=== PATIENT | female | born 1995 | race Caucasian/White ===

== ENCOUNTER 2017-10-24 19:47 | Emergency (ER) | payer OTHER, MEDICAID, SELFPAY ==
[2017-10-24 19:52] VITALS: BP 142/90; PULSE 124; RESP 20; TEMP 37.6; O2SAT 100
--- NOTE | 2017-10-24 20:53 | PC.NURSE ---
Steady gait noted.
--- NOTE | 2017-10-24 21:06 | ED.HA ---
HPI - Headache General Chief Complaint: Headache Stated Complaint: Hit back of head on fridge door this morning Time Seen by Provider: 10/24/17 20:50 History of Present Illness HPI Narrative: HPI 22-year-old female presents for evaluation of a headache and mild nausea after bumping the back of her head a freezer door approximately 10 hours prior to arrival. Patient is bending down with her young son accidentally close the door striking the back of her head. Patient had no LOC, patient no post injury confusion. Patient denies neck pain, changes in vision or hearing. Patient has no known coagulopathies, takes no anticoagulants or antiplatelet medications. ROS with no recent constitutional symptoms. Exam Gen: Pleasant, nontoxic-appearing, resting comfortably. HEENT: TMs clear bilaterally, small area of ecchymosis on the occiput, no underlying bony tenderness to palpation, otherwise normocephalic, atraumatic, PERRLA, EOMI. Resp: Unlabored respirations with a normal work of breathing. Card: Extremities warm and well perfused. GI: Non-distended. : Deferred MSK: No visible deformities, strength and tone without visually appreciable deficit. No C-spine tenderness palpation. Neck with full range of motion. Neuro: AO x 3, no facial asymmetry, vision and hearing WNL. Heme/Lymph: Deferred Skin: Normal color with no visible lesions (other than noted above). Psych: Mood and affect appropriate. MDM Previous chart, nursing note, and vitals reviewed. A: 22-year-old female presents for evaluation of a headache and mild nausea after bumping the back of her head a freezer door approximately 10 hours prior to arrival. DDx & Evaluation: * Patient meets Nexus II rule for NOT imaging their head (age >= 65 - N, skull fx evidence - N, neuro deficit - N, AMS - N, abnormal behavior - N, coagulopathy - N, recurrent or forceful vomiting - N) as well a clinical gestalt. NOTE: SENS ~97% * C-spine was cleared clinically as the patient is without focal neurological deficits on exam, meets both [place] C-spine clearance criteria (age < 65, low risk mechanism, absent extremity paresthesias, absent mid-line c-spine tenderness, and can lateral rotate neck bilaterally) and clinical gestalt. * Patient with mild concussive symptoms. Zofran prescribed. Return to care precautions provided. Impression: concussion (please reference below for remainder of encounter information) Related Data Home Medications Medication Instructions Recorded Confirmed No Known Home Medications 10/24/17 10/24/17 Allergies Allergy/AdvReac Type Severity Reaction Status Date / Time No Known Drug Allergies Allergy Verified 10/24/17 19:54 Exam Initial Vital Signs Initial Vital Signs: Vital Signs Temperature 99.6 F 10/24/17 19:52 Pulse Rate 124 H 10/24/17 19:52 Respiratory Rate 20 10/24/17 19:52 Blood Pressure 142/90 H 10/24/17 19:52 Pulse Oximetry 100 10/24/17 19:52 Course Vital Signs - 8 hr 10/24/17 19:52 Temperature 99.6 F Pulse Rate 124 H Respiratory Rate 20 Blood Pressure 142/90 H Pulse Oximetry 100 Discharge Plan Departure Prescriptions: No Action No Known Home Medications RF: 0
[2017-10-24 21:20] VITALS: BP 133/78; PULSE 94; RESP 18; O2SAT 100
== END 2017-10-24 21:30 | disposition home or self-care (01) ==
PROVIDERS: Emergency Provider Emergency Medicine
DX: S06.0X9A Concussion with loss of consciousness of unspecified duration, initial encounter (principal); W22.09XA Striking against other stationary object, initial encounter
CPT/HCPCS: 99282; 99283

== ENCOUNTER → 2020-02-17 15:17 | Outpatient (CLI) | payer OTHER, MEDICAID, SELFPAY | PROVIDERS: PCP Student in an Organized Health Care Education/Training Program; Visit Provider Nurse Practitioner | DX: R30.0 Dysuria (principal) | CPT/HCPCS: 87077; 87086; 87186 ==

== ENCOUNTER → 2020-06-25 16:46 | Outpatient (CLI) | payer OTHER, MEDICAID, SELFPAY ==
--- NOTE | 2020-06-25 16:46 | DI.RAD.S_ITS ---
PROCEDURE: XR KNEE RT 3V INDICATIONS: knee pain TECHNIQUE: 3 views of the knee were acquired. COMPARISON: None. FINDINGS: Bones: No fractures or dislocations. No suspicious bony lesions. Soft tissues: Small joint effusion. No suspicious soft tissue calcifications. IMPRESSION: Small knee joint effusion; otherwise no definite radiographic abnormality. If pain persists with conservative management, consider cross sectional imaging such as CT or MRI for further assessment. Dictated by: Judd Shaw [facility] Interpreted: Hui Langston MD on 06/25/2020 at 16:58 Approved by: Hui Langston M.D. on 06/25/2020 at 17:05
--- NOTE | 2020-06-25 16:46 | DI.RAD.S_ITS ---
PROCEDURE: XR KNEE LT 3V INDICATIONS: knee pain TECHNIQUE: 3 views of the knee were acquired. COMPARISON: None. FINDINGS: Bones: No fractures or dislocations. No suspicious bony lesions. Soft tissues: Small joint effusion. No suspicious soft tissue calcifications. IMPRESSION: Small knee joint effusion; otherwise no definite radiographic abnormality. If pain persists with conservative management, consider cross sectional imaging such as CT or MRI for further assessment. Dictated by: Judd Shaw [facility] Interpreted: Hui Langston MD on 06/25/2020 at 16:57 Approved by: Hui Langston M.D. on 06/25/2020 at 17:05
== END ==
PROVIDERS: PCP Student in an Organized Health Care Education/Training Program; Referring Provider Student in an Organized Health Care Education/Training Program; Visit Provider Student in an Organized Health Care Education/Training Program
DX: M25.561 Pain in right knee (principal); M25.562 Pain in left knee; M25.462 Effusion, left knee; M25.461 Effusion, right knee
CPT/HCPCS: 73562

== ENCOUNTER 2020-07-08 05:31 | Emergency (ER) | payer OTHER, MEDICAID, SELFPAY ==
[2020-07-08 05:38] VITALS: BP 149/89; PULSE 115; RESP 22; TEMP 36.3; O2SAT 100; BMI 25.3
--- NOTE | 2020-07-08 05:47 | ED.DENTAL ---
HPI - Dental/Oral General Chief complaint: Dental/Oral Stated complaint: lower left tooth pain Time Seen by Provider: 07/08/20 05:39 Source: patient Mode of arrival: Ambulatory Limitations: no limitations History of Present Illness HPI Narrative: 25-year-old female with complaint of dental pain. Patient states she has had symptoms since about June. Patient states that she cracked her tooth, number 19 approximately 10 years ago. She states she did not have much issue until the last 1-2 months patient states she has been having intermittent pain. It is becoming progressively more painful and in the last 24 hours has been constant. She states it woke her up from sleep this morning. She took 2 500 mg Tylenol this morning at 5:00 a.m. she states she is having some improvement but still present. She denies fevers, chills, no cold cough congestion. No swelling of her airway, face. She has not appreciated any swelling around the tooth no drainage or purulence. Denies any nausea no vomiting. No chest pain, shortness of breath or other GI or urinary symptoms. She denies any rashes or skin changes. Denies any major medical issues. Denies any allergies to medications. She does have a dentist but stated that she thought she should be evaluated since she is not sure when she will get an appointment when she calls this morning. Related Data Home Medications Medication Instructions Recorded Confirmed etonogestrel 68 mg subdermal SUBDERMAL each 03/31/18 06/25/20 implant Previous Rx's Medication Instructions Recorded ibuprofen 800 mg PO Q8H PRN #20 tab 07/08/20 penicillin V potassium 500 mg PO Q6H 10 Days #40 tab 07/08/20 Allergies Allergy/AdvReac Type Severity Reaction Status Date / Time No Known Drug Allergies Allergy Verified 07/08/20 05:41 Review of Systems Review of Systems ROS Unobtainable: All systems reviewed & are unremarkable except as noted in HPI and below Patient History Medical History Anxiety Depression Hemochromatosis Surgical History No history of previous surgery (03/31/18) Family History Father No problems noted. Mother No problems noted. Brother No problems noted. Social History Smoking Status: Never smoker alcohol intake: never substance use type: does not use Smoking Status: Never smoker Substance Use Type: does not use Exam Narrative Exam Narrative: GEN: well nourished, well appearing female, alert and oriented x 3, patient appears to be in mild distress. HEENT: Atraumatic, pupils are equal round reactive to light, extraocular movements are intact, nares are clear, TMs are clear with no fluid. Throat is clear without any exudates, erythema, tonsillar enlargement or uvular deviation. Tooth 19. Appears to be cracked, no purulence noted. There is some very slight swelling around the tooth no additional swelling noted of the oropharynx. Normal speech. No facial erythema, swelling or other changes appreciated. HEART: Regular rate and rhythm without murmur, clicks, rubs. LUNGS:Lungs clear to auscultation, no wheezes, rales, crackles, chest moves symmetrically ABD:bowel sounds normal, soft, non-tender, no guarding, rebound, rigidity, no masses noted, no hepatosplenomegaly MSCL: Non-tender, no muscle atrophy, muscles strength 5/5 upper and lower extremities, full range of motion, normal gait NEURO:CN 2-12 intact, sensation normal SKIN: No erythema, rash, vesicles or other changes appreciated. Initial Vital Signs Initial Vital Signs: Vital Signs Temperature 97.3 F L 07/08/20 05:38 Pulse Rate 115 H 07/08/20 05:38 Respiratory Rate 22 07/08/20 05:38 Blood Pressure 149/89 H 07/08/20 05:38 Pulse Oximetry 100 07/08/20 05:38 Course Vital Signs Vital signs: Vital Signs - 8 hr 07/08/20 05:38 Temperature 97.3 F L Pulse Rate 115 H Respiratory Rate 22 Blood Pressure 149/89 H Pulse Oximetry 100 MDM - Dental/Oral MDM Narrative Medical decision making narrative: 25-year-old female with complaint of cracked tooth for prolonged period of time that has suddenly become painful. Obvious signs of infection although there is some very mild swelling. Discussed with patient if she is not having improvement with Tylenol and ibuprofen and able to see a dentist in the short term would be appropriate for her to start antibiotics. Return precautions were given. Patient is comfortable with this plan. She defers any additional pain medication here in the department. Discharge Plan Departure Patient Disposition: Home Clinical Impression: Fracture of tooth, Pain, dental Instructions: DI for Dental Pain Activity Restrictions/Additional Instructions: Call this morning to set up follow-up with a dentist. You may take Tylenol up to a 1000 mg every 8 hours as needed for pain and or ibuprofen up to 800 mg every 8 hours as needed for pain. You may also use Orajel topically to the affected area just prior to meals. Return to the ER for fevers, facial swelling, swelling of your lips, mouth, your airway, new redness, purulence drainage, or signs of abscess, persistent vomiting, stridor or hoarse voice or other new or concerning symptoms. Prescriptions: New penicillin V potassium 500 mg tablet 500 mg PO Q6H 10 Days Qty: 40 RF: 0 ibuprofen 800 mg tablet 800 mg PO Q8H PRN (Reason: pain) Qty: 20 RF: 0 No Action etonogestrel [Nexplanon] 68 mg implant Subdermal RF: 0 Referrals: Joaquin Loyola MD [Primary Care Provider] -
== END 2020-07-08 05:59 | disposition home or self-care (01) ==
PROVIDERS: Emergency Provider Emergency Medicine; PCP Student in an Organized Health Care Education/Training Program
DX: K03.81 Cracked tooth (principal); K08.89 Other specified disorders of teeth and supporting structures
CPT/HCPCS: 99281

== ENCOUNTER 2020-07-09 17:25 | Emergency (ER) | payer OTHER, MEDICAID, SELFPAY ==
[2020-07-09 17:31] VITALS: BP 134/80; PULSE 125; RESP 16; TEMP 37.3; O2SAT 100
[2020-07-09 18:09] VITALS: TEMP 37.9
[2020-07-09 18:49] VITALS: TEMP 37.9
[2020-07-09] MEDS: ACETAMINOPHEN 325 MG TABLET 650 MG PO (18:49)
--- NOTE | 2020-07-09 18:49 | ED_ITS ---
HPI - Dental/Oral General Chief complaint: Fever Stated complaint: fever, pain in lower jaw Time Seen by Provider: 07/09/20 18:42 Source: patient Mode of arrival: Ambulatory History of Present Illness HPI Narrative: Patient here with family. Complains of continued left jaw pain and swelling. Seen here yesterday for the same complaint. Discharged on penicillin. Has taken 4 pills since her visit here. Complains of left submandibular pain and swelling. She states the tooth itself does not hurt as bad. Tooth 19. See note below from previous visit. No drooling. No trouble breathing. No malocclusion or trismus no tongue elevation. Fever noted. [address] [id number] Report Patient: Norman Montiel RMR#: [id number]: 1995Acct:[id number]/Sex: 25 / F Date of Service: 07/08/20ER Physician: Nicci Roman D.O. HPI - Dental/Oral General Chief complaint: Dental/Oral Stated complaint: lower left tooth pain Time Seen by Provider: 07/08/20 05:39 Source: patient Mode of arrival: Ambulatory Limitations: no limitations History of Present Illness HPI Narrative: 25-year-old female with complaint of dental pain. Patient states she has had symptoms since about June. Patient states that she cracked her tooth, number 19 approximately 10 years ago. She states she did not have much issue until the last 1-2 months patient states she has been having intermittent pain. It is becoming progressively more painful and in the last 24 hours has been constant. She states it woke her up from sleep this morning. She took 2 500 mg Tylenol this morning at 5:00 a.m. she states she is having some improvement but still present. She denies fevers, chills, no cold cough congestion. No swelling of her airway, face. She has not appreciated any swelling around the tooth no drainage or purulence. Denies any nausea no vomiting. No chest pain, shortness of breath or other GI or urinary symptoms. She denies any rashes or skin changes. Denies any major medical issues. Denies any allergies to medications. She does have a dentist but stated that she thought she should be evaluated since she is not sure when she will get an appointment when she calls this morning. Related Data Home Medications Medication Instructions Recorded Confirmed etonogestrel 68 mg subdermal SUBDERMAL each 03/31/18 06/25/20 implant Previous Rx's Medication Instructions Recorded ibuprofen 800 mg PO Q8H PRN #20 tab 07/08/20 penicillin V potassium 500 mg PO Q6H 10 Days #40 tab 07/08/20 clindamycin HCl 450 mg PO TID 7 Days #63 cap 07/09/20 Allergies Allergy/AdvReac Type Severity Reaction Status Date / Time No Known Drug Allergies Allergy Verified 07/08/20 05:41 Review of Systems Review of Systems Narrative: GENERAL: Denies chills, fatigue, malaise, fever, sweats. HEENT: Denies sinus pain, ear pain, sore throat, difficulty swallowing RESPIRATORY: Denies dyspnea, cough CARDIOVASCULAR: Denies chest pain GASTROINTESTINAL: Denies nausea, vomiting, abdominal pain, diarrhea : Denies dysuria, frequency, hematuria MUSCULOSKELETAL: denies muscle or bony pain SKIN: Denies rash, skin lesions NEUROLOGIC: Denies weakness, headache ROS Unobtainable: All systems reviewed & are unremarkable except as noted in HPI and below Patient History Medical History Anxiety Depression Hemochromatosis Surgical History No history of previous surgery (03/31/18) Family History Father No problems noted. Mother No problems noted. Brother No problems noted. Social History Smoking Status: Never smoker alcohol intake: never substance use type: does not use Smoking Status: Never smoker Substance Use Type: does not use Exam Narrative Exam Narrative: GENERAL: patient appears stated age. Well-nourished, well- developed patient, in no distress, not toxic not dyspneic HEAD: Normocephalic. EYES: Pupils equal round and reactive. No scleral icterus. No injection no discharge ENT: Mucous membranes moist. No drooling no tongue elevation no trismus no malocclusion, dental caries/fracture that is chronic appearing on tooth 19. No palpable abscess around this area at the gums. Nontender. Mild left submandibular tenderness with mild edema but no erythema or induration. NECK: Trachea midline. Non tender no stridor Lungs are clear, full and equal lung sounds, speaks full sentences. NEURO: AOx4. SKIN: Warm and dry PSYCH: Not anxious, is cooperative Initial Vital Signs Initial Vital Signs: Vital Signs Temperature 99.2 F 07/09/20 17:31 Pulse Rate 125 H 07/09/20 17:31 Respiratory Rate 16 07/09/20 17:31 Blood Pressure 134/80 07/09/20 17:31 Pulse Oximetry 100 07/09/20 17:31 Course Course Course Narrative: No new issues during course of stay Orders Ordered: ED Orders 07/09/20 18:48 CT facial bones w con Stat 07/09/20 18:55 Complete Blood Count AUTO DIFF Stat Comprehensive Metabolic Panel Stat Discontinued Medications Acetaminophen (Acetaminophen 325 Mg Tablet) 650 mg PO NOW ONE Stop: 07/09/20 18:32 Last Admin: 07/09/20 18:49 Dose: 650 mg Documented by: TEMO Clindamycin HCl (Clindamycin 150 Mg Capsule) 450 mg PO NOW ONE Stop: 07/09/20 20:52 Last Admin: 07/09/20 20:57 Dose: 450 mg Documented by: TEMO Sodium Chloride (Normal Saline 0.9%) 1,000 mls @ 1,000 mls/hr IV BOLUS ONE Stop: 07/09/20 19:47 Last Infusion: 07/09/20 20:19 Dose: 0 mls/hr Documented by: Admin: 07/09/20 19:03 Dose: 1,000 mls/hr Documented by: TEMO Reevaluation(s) Reevaluation #1: Reviewed with patient results. Agrees with discharge home and. Previous antibiotic. She has appointment this already with her dentist for tooth extraction. Time: 20:57 Vital Signs Vital signs: Vital Signs - 8 hr 07/09/20 17:31 07/09/20 18:09 07/09/20 18:49 Temperature 99.2 F 100.3 F H 100.3 F H Pulse Rate 125 H Respiratory Rate 16 Blood Pressure 134/80 Pulse Oximetry 100 07/09/20 19:11 07/09/20 19:57 07/09/20 21:03 Temperature 98.6 F 98.6 F Pulse Rate 94 H Respiratory Rate 16 Blood Pressure 121/70 114/68 Pulse Oximetry 99 MDM - Dental/Oral Differential Diagnosis Differential diagnosis: Likely gingival abscess, dental caries, toothache and dental abscess Medical Records Attestation: I reviewed the patient's medical records. Lab Data Attestation: I reviewed the patient's lab results. Result diagrams: 07/09/20 18:55 07/09/20 18:55 Labs: Lab Results 07/09/20 07/09/20 Range/Units 18:55 18:55 WBC 5.6 (4.5-11.0) X10^3/uL RBC 4.28 (4.0-5.2) X10^6/uL Hgb 12.9 (12.0-16.0) g/dL Hct 38.6 (36-46) % MCV 90.2 (80-100) fL MCH 30.3 (26-34) PG MCHC 33.6 (30-36) % RDW 12.2 (11.6-14.8) % Plt Count 146 L (150-400) X10^3/uL Neut % (Auto) 74.5 (50-75) % Lymph % (Auto) 9.8 L (25-40) % [place] % (Auto) 15.5 H (3-14) % Eos % (Auto) 0.0 L (2-4) % Baso % (Auto) 0.2 (0-2) % Neut # (Auto) 4100 (8026-2190) /uL Lymph # (Auto) 500 L (5514-1590) /uL [place] # (Auto) 900 (0-900) /uL Eos # (Auto) 0 (0-450) /uL Baso # (Auto) 0 (0-100) /uL Sodium 134 L (137-145) mmol/L Potassium 3.9 (3.4-5.1) mmol/L Chloride 105 (98-107) mmol/L Carbon Dioxide 23 (22-32) mmol/L BUN 9 (7-17) mg/dL Creatinine 0.59 (0.52-1.04) mg/dL Estimated GFR > 60.0 (>60) mL/min BUN/Creatinine Ratio 15.3 (6-22) Glucose 90 (70-100) mg/dL Calcium 9.0 (8.4-10.2) mg/dL Total Bilirubin 0.4 (0.2-1.3) mg/dL AST 19 (14-36) IU/L ALT 11 (<35) IU/L Alkaline Phosphatase 70 (38-126) U/L Total Protein 6.8 (6.3-8.2) g/dL Albumin 3.9 (3.5-5.0) g/dL Globulin 2.9 (1.7-4.1) g/dL Albumin/Globulin Ratio 1.3 (1.0-2.8) Point of Care Testing Test Results Negative Imaging Data CT face: Radiologist's Impression: [address] [id number] Scan ReportSigned Patient: Norman Montiel RMR#: [id number]: 1995Acct:[id number]/Sex: 25 / FDate of Service: 07/09/20Loc: EDAccession Number: [id number] Procedure: CT facial bones w con Ordering Provider: Rk Aguilar MD PROCEDURE: CT FACIAL BONES W CON INDICATIONS: Left jaw swelling. TECHNIQUE: After the administration of intravenous contrast, 2.5 mm axial sections acquired from the mid-neck to the frontal sinuses, with coronal and sagittal reformats. For radiation dose reduction, the following was used: automated exposure control, adjustment of mA and/or kV according to patient size. COMPARISON: None. FINDINGS: Image quality: Excellent. Soft tissues: There is slight asymmetric appearance of soft tissue prominence along the anterior left jaw soft tissues. No focal abscess is identified. No enlarged lymph nodes. Vascular: Visualized vascular structures appear patent throughout. Bony vascular foramina and canals appear normal. Bones: Facial bones appear intact, without fractures, erosions, or destruction. Visualized portions of the skull base and auditory canals also appear normal. Sinuses: Paranasal sinuses are aerated without fluid levels, mucosal thickening, or mucoceles. Mastoid air cells are aerated. IMPRESSION: 1. Slight asymmetric soft tissue prominence adjacent to the anterior left jaw. No focal abscess is identified. Recommend correlation to inflammation. Dictated by: Hui Langston M.D. on 07/09/2020 at 20:05 Approved by: Hui Langston M.D. on 07/09/2020 at 20:10 [facility] Narrative Medical decision making narrative: Appropriate for discharge home. Patient not toxic. Fever control. Likely early abscess forming. Will change to clind amycin. Patient agrees with treatment plan. Not toxic at discharge. Discharge Plan Departure Patient Disposition: Home Clinical Impression: Pain, dental Instructions: DI for Fever (Symptom) -- Adult Activity Restrictions/Additional Instructions: See your dentist this as scheduled for dental extraction as planned. Continue antibiotic tomorrow. Prescription has been sent to your pharmacy. Return if worse if any questions or concerns or trouble breathing or swallowing or any drooling.. Previous antibiotic from yesterday. May use Tylenol or ibuprofen for pains or fever. Prescriptions: New clindamycin HCl 150 mg capsule 450 mg PO TID 7 Days Qty: 63 RF: 0 No Action etonogestrel [Nexplanon] 68 mg implant Subdermal RF: 0 penicillin V potassium 500 mg tablet 500 mg PO Q6H 10 Days Qty: 40 RF: 0 ibuprofen 800 mg tablet 800 mg PO Q8H PRN (Reason: pain) Qty: 20 RF: 0 Referrals: Joaquin Loyola MD [Primary Care Provider] -
[2020-07-09 19:01] LABS: Add Manual Diff / Slide Review NO; Basophils Absolute Auto 0 /uL (0-100); Basophils Percent Auto 0.2 % (0-2); Eosinophils Absolute Auto 0 /uL (0-450); Hematocrit 38.6 % (36-46); Hemoglobin 12.9 g/dL (12.0-16.0); Lymphocytes Absolute Auto 500 /uL (1100-4500); Lymphocytes Percent Auto 9.8 % (25-40); Mean Corpuscular HGB Conc 33.6 % (30-36); Mean Corpuscular Hemoglobin 30.3 PG (26-34); Mean Corpuscular Volume 90.2 fL (80-100); Monocytes Absolute Auto 900 /uL (0-900); Monocytes Percent Auto 15.5 % (3-14); Neutrophils Absolute Auto 4100 /uL (1500-7000); Neutrophils Percent Auto 74.5 % (50-75); Platelet Count 146 X10^3/uL (150-400); Red Blood Cell Count 4.28 X10^6/uL (4.0-5.2); Red Cell Distribution Width 12.2 % (11.6-14.8); White Blood Cell Count 5.6 X10^3/uL (4.5-11.0)
[2020-07-09] MEDS: SODIUM CHLORIDE 0.9% 1,000 ML 1000 ML IV (19:03)
[2020-07-09 19:11] VITALS: TEMP 37
[2020-07-09 19:17] LABS: Alanine Aminotransferase 11 IU/L (<35); Albumin 3.9 g/dL (3.5-5.0); Albumin Globulin Ratio 1.3 (1.0-2.8); Alkaline Phosphatase 70 U/L (38-126); Aspartate Aminotransferase 19 IU/L (14-36); BUN Creatinine Ratio 15.3 (6-22); Bilirubin Total 0.4 mg/dL (0.2-1.3); Blood Urea Nitrogen 9 mg/dL (7-17); Carbon Dioxide 23 mmol/L (22-32); Chloride 105 mmol/L (98-107); Estimated Glomerular Filt Rate > 60.0 mL/min (>60); Globulin 2.9 g/dL (1.7-4.1); Glucose 90 mg/dL (70-100); HEMOLYSIS < 15 (0-50); Potassium 3.9 mmol/L (3.4-5.1); Sodium 134 mmol/L (137-145); Total Protein 6.8 g/dL (6.3-8.2)
[2020-07-09 19:57] VITALS: BP 121/70
[2020-07-09] MEDS: CLINDAMYCIN 150 MG CAPSULE 450 MG PO (20:57)
[2020-07-09 21:03] VITALS: BP 114/68; PULSE 94; RESP 16; TEMP 37; O2SAT 99
== END 2020-07-09 21:03 | disposition home or self-care (01) ==
PROVIDERS: Emergency Provider Emergency Medicine; PCP Student in an Organized Health Care Education/Training Program
DX: K08.89 Other specified disorders of teeth and supporting structures (principal); R50.9 Fever, unspecified; R68.84 Jaw pain
CPT/HCPCS: 36415; 70487; 80053; 81025; 85025; 96360; 99283; 99284

== ENCOUNTER 2022-05-11 16:06 | Emergency (ER) | payer OTHER, MEDICAID, SELFPAY ==
[2022-05-11 16:25] VITALS: BP 140/86; PULSE 114; RESP 16; TEMP 37.7; O2SAT 98; BMI 24.2
[2022-05-11 17:53] LABS: Influenza A - CEPHEID Flu A POSITIVE (NEGATIVE); Influenza B - CEPHEID Flu B NEGATIVE (NEGATIVE); Respiratory Syncytial Virus Negative (Negative)
[2022-05-11 18:05] LABS: COVID-19 CEPHEID 4-PLEX PCR Negative (Negative)
[2022-05-11 19:49] VITALS: BP 104/60; PULSE 82; RESP 18; TEMP 37.1; O2SAT 100
--- NOTE | 2022-05-11 20:10 | ED.URI ---
HPI - URI/Sore Throat General Chief Complaint: Upper Respiratory Symptoms Stated Complaint: Not feeling good, Cough Time Seen by Provider: 05/11/22 20:06 Source: patient Mode of arrival: Ambulatory Related Data Home Medications Medication Instructions Recorded Confirmed etonogestrel 68 mg subdermal subdermal 03/31/18 04/26/22 implant (Nexplanon) Allergies Allergy/AdvReac Type Severity Reaction Status Date / Time No Known Drug Allergies Allergy Verified 04/26/22 12:33 Patient History Medical History Anxiety Cervical cancer screening Depression Hemochromatosis Screening for HPV (human papillomavirus) Surgical History No history of previous surgery (03/31/18) Family History Father No problems noted. Mother No problems noted. Brother No problems noted. Social History Smoking Status: Never smoker alcohol intake: never substance use type: does not use Smoking Status: Never smoker Substance Use Type: does not use Exam Initial Vital Signs Initial Vital Signs: Vital Signs Temperature 99.8 F H 05/11/22 16:25 Pulse Rate 114 H 05/11/22 16:25 Respiratory Rate 16 05/11/22 16:25 Blood Pressure 140/86 05/11/22 16:25 Pulse Oximetry 98 05/11/22 16:25 Oxygen Delivery Method 05/11/22 16:25 Course Orders Ordered: ED Orders 05/11/22 16:30 Covid-19 + FLU A/B + RSV - PCR Stat Vital Signs Vital signs: Vital Signs - 8 hr 05/11/22 16:25 05/11/22 19:49 Temperature 99.8 F H 98.7 F Pulse Rate 114 H 82 Respiratory Rate 16 18 Blood Pressure 140/86 104/60 Pulse Oximetry 98 100 Oxygen Delivery Method Room Air Room Air MDM - URI/Sore Throat Lab Data Labs: Lab Results 05/11/22 Range/Units 16:30 SARS-CoV-2 (PCR) Negative (Negative) Influenza A (RT-PCR) Flu a positive H (NEGATIVE) Influenza B (RT-PCR) Flu b negative (NEGATIVE) RSV (PCR) Negative (Negative) Discharge Plan Departure Prescriptions: No Action etonogestrel [Nexplanon] 68 mg implant Subdermal Referrals: Joaquin Loyola MD [Primary Care Provider] -
== END 2022-05-11 21:48 | disposition left against medical advice (07) ==
PROVIDERS: Emergency Medicine; Emergency Provider Emergency Medicine; PCP Student in an Organized Health Care Education/Training Program
DX: J10.1 Influenza due to other identified influenza virus with other respiratory manifestations (principal); Z20.822 Contact with and (suspected) exposure to COVID-19
CPT/HCPCS: 0241U; 99281

== ENCOUNTER → 2022-06-16 17:44 | Outpatient (CLI) | payer OTHER, MEDICAID, SELFPAY | PROVIDERS: PCP Student in an Organized Health Care Education/Training Program; Visit Provider Registered Nurse | DX: R30.0 Dysuria (principal) | CPT/HCPCS: 81002; 87086 ==

== ENCOUNTER 2022-06-21 00:11 | Emergency (ER) | payer OTHER, MEDICAID, SELFPAY ==
[2022-06-21 00:18] VITALS: BP 138/82; PULSE 104; RESP 16; TEMP 36.8; O2SAT 97; BMI 25.8
--- NOTE | 2022-06-21 00:55 | ED.DENTAL ---
HPI - Dental/Oral General Chief complaint: Dental/Oral Stated complaint: Rt. side bottom tooth pain Time Seen by Provider: 06/21/22 00:48 Source: patient Mode of arrival: Ambulatory Limitations: no limitations History of Present Illness HPI Narrative: This is a 27-year-old female with no reported medical issues. Patient states she is not on any daily medications. Patient states she believes she might have a dental infection she has pain on the right side bottom tooth. She states she is had a little bit of swelling. She is not any drainage. No fevers. No nausea or vomiting. No swelling of her airway, tongue or difficulty swallowing. States sometimes the pain radiates to her ear. She has had issues in the past she has been on antibiotics before for dental infections and has had teeth extracted before. Patient states she is currently in between dental insurance but has used [facility] in the past. She does plan to follow-up but unsure timeframe. She denies tobacco, no alcohol or illicit. She states she is been on multiple antibiotics she is unsure of which ones. Related Data Home Medications Medication Instructions Recorded Confirmed etonogestrel 68 mg subdermal subdermal 03/31/18 06/16/22 implant (Nexplanon) Previous Rx's Medication Instructions Recorded penicillin V potassium 500 mg 500 mg PO QID #40 tabs 06/21/22 tablet Allergies Allergy/AdvReac Type Severity Reaction Status Date / Time No Known Drug Allergies Allergy Verified 06/21/22 00:18 Review of Systems Review of Systems ROS Unobtainable: All systems reviewed & are unremarkable except as noted in HPI and below Patient History Medical History Anxiety Cervical cancer screening Depression Hemochromatosis Screening for HPV (human papillomavirus) Surgical History No history of previous surgery (03/31/18) Family History Father No problems noted. Mother No problems noted. Brother No problems noted. Social History Smoking Status: Never smoker alcohol intake: never substance use type: does not use Smoking Status: Never smoker Substance Use Type: does not use Exam Narrative Exam Narrative: GEN: well nourished, well appearing female, alert and oriented x 3, patient appears to be in mild distress. HEENT: Atraumatic, pupils are equal round reactive to light, extraocular movements are intact, nares are clear, TMs are clear with no fluid, there is no conjunctival pallor. Throat is clear without any exudates, erythema, tonsillar enlargement or uvular deviation, patient has multiple areas of dental caries. Tooth number #30 had small area discoloration but otherwise intact. Mild swelling at the base. No drainage. No difficulty swallowing secretions. Normal speech. HEART: Regular rate and rhythm without murmur, clicks, rubs LUNGS:Lungs clear to auscultation, no wheezes, rales, crackles, chest moves symmetrically ABD:bowel sounds normal, soft, non-tender, no guarding, rebound, rigidity, no masses noted, no hepatosplenomegaly MSCL: full range of motion, normal gait NEURO:CN 2-12 intact, sensation normal SKIN: No rash, erythema or other skin changes. No facial swelling, warmth. Initial Vital Signs Initial Vital Signs: Vital Signs Temperature 98.2 F 06/21/22 00:18 Pulse Rate 104 H 06/21/22 00:18 Respiratory Rate 16 06/21/22 00:18 Blood Pressure 138/82 06/21/22 00:18 Pulse Oximetry 97 06/21/22 00:18 Oxygen Delivery Method 06/21/22 00:18 Course Orders Ordered: Discontinued Medications Penicillin V Potassium (Penicillin 250 Mg Tab Prepack) 1 bottle MISC SEEINSTR ONE Stop: 06/21/22 01:41 Last Admin: 06/21/22 01:48 Dose: 1 bottle Documented By: YANI Vital Signs Vital signs: Vital Signs - 8 hr 06/21/22 00:18 Temperature 98.2 F Pulse Rate 104 H Respiratory Rate 16 Blood Pressure 138/82 Pulse Oximetry 97 Oxygen Delivery Method Room Air MDM - Dental/Oral MDM Narrative Medical decision making narrative: This is a 27-year-old female who presents with complaint of dental pain, has possible dental infection. No obvious fracture to the tooth. Plan for short course antibiotics she is taking Tylenol ibuprofen for pain which she states is helpful for period of time. Discussed follow-up with dentistry. We did discuss return precautions all questions answered. Discharge Plan Departure Patient Disposition: Home Clinical Impression: Pain, dental, Dental infection Instructions: DI for Dental Pain Activity Restrictions/Additional Instructions: Follow-up with a dentist for recheck preferably in the next week. Take antibiotics until completely gone. Prescription sent to [facility] in [place]. Please return for fevers, rapidly worsening symptoms, swelling face, airway, tongue, new redness, drainage, persistent vomiting or other new or concerning changes. Prescriptions: New penicillin V potassium 500 mg tablet 500 mg PO QID Qty: 40 0RF No Action etonogestrel [Nexplanon] 68 mg implant Subdermal Referrals: Joaquin Loyola MD [Primary Care Provider] - Stand Alone Forms: Patient Portal/API
[2022-06-21] MEDS: PENICILLIN 250 MG TAB PREPACK 1 BOTTLE MISC (01:48)
== END 2022-06-21 01:54 | disposition home or self-care (01) ==
PROVIDERS: Emergency Provider Emergency Medicine; PCP Student in an Organized Health Care Education/Training Program
DX: K08.89 Other specified disorders of teeth and supporting structures (principal); K04.7 Periapical abscess without sinus
CPT/HCPCS: 99281; 99283

== ENCOUNTER → 2022-10-27 09:12 | Outpatient (CLI) | payer OTHER, MEDICAID, SELFPAY ==
[2022-10-27 09:48] LABS: Add Manual Diff / Slide Review NO; Basophils Absolute Auto 0 /uL (0-100); Basophils Percent Auto 0.9 % (0-2); Eosinophils Absolute Auto 0 /uL (0-450); Eosinophils Percent Auto 0.9 % (2-4); Hematocrit 39.4 % (36-46); Hemoglobin 13.2 g/dL (12.0-16.0); Lymphocytes Absolute Auto 1700 /uL (1100-4500); Lymphocytes Percent Auto 32.9 % (25-40); Mean Corpuscular HGB Conc 33.5 % (30-36); Mean Corpuscular Hemoglobin 29.9 PG (26-34); Mean Corpuscular Volume 89.3 fL (80-100); Monocytes Absolute Auto 600 /uL (0-900); Monocytes Percent Auto 11.2 % (3-14); Neutrophils Absolute Auto 2800 /uL (1500-7000); Neutrophils Percent Auto 54.1 % (50-75); Platelet Count 200 X10^3/uL (150-400); Red Blood Cell Count 4.42 X10^6/uL (4.0-5.2); Red Cell Distribution Width 12.7 % (11.6-14.8); White Blood Cell Count 5.1 X10^3/uL (4.5-11.0)
[2022-10-27 10:17] LABS: Alanine Aminotransferase 15 IU/L (<35); Albumin 4.2 g/dL (3.5-5.0); Albumin Globulin Ratio 1.4 (1.0-2.8); Alkaline Phosphatase 59 U/L (38-126); Aspartate Aminotransferase 19 IU/L (14-36); Bilirubin Total 0.6 mg/dL (0.2-1.3); Blood Urea Nitrogen 14 mg/dL (7-17); Calcium 9.1 mg/dL (8.4-10.2); Carbon Dioxide 26 mmol/L (22-32); Chloride 106 mmol/L (98-107); Estimated Glomerular Filt Rate > 60 mL/min (>60); Glucose 95 mg/dL (70-100); HEMOLYSIS < 15 (0-50); Potassium 3.9 mmol/L (3.4-5.1); Sodium 140 mmol/L (137-145); Total Protein 7.2 g/dL (6.3-8.2)
== END ==
PROVIDERS: PCP Family Medicine; Referring Provider Family Medicine; Visit Provider Family Medicine
DX: K62.5 Hemorrhage of anus and rectum (principal)
CPT/HCPCS: 36415; 80053; 85025

== ENCOUNTER 2023-04-19 23:30 | Emergency (ER) | payer OTHER, MEDICAID, SELFPAY ==
[2023-04-19 23:40] VITALS: BP 141/81; PULSE 96; RESP 18; TEMP 36.8; O2SAT 99
[2023-04-20 00:38] LABS: Influenza A - CEPHEID Flu A NEGATIVE (NEGATIVE); Influenza B - CEPHEID Flu B NEGATIVE (NEGATIVE); Respiratory Syncytial Virus Negative (Negative)
[2023-04-20 00:41] LABS: COVID-19 CEPHEID 4-PLEX PCR Negative (Negative)
--- NOTE | 2023-04-20 00:58 | ED_ITS ---
HPI - General Adult General Chief complaint: Recheck/Abnormal Lab/Rx Stated complaint: cough Time Seen by Provider: 04/20/23 00:32 Source: patient Mode of arrival: Ambulatory History of Present Illness HPI narrative: 28-year-old woman with no significant medical history including nonsmoker and no evidence of asthma presents with day 14 of a cough. It begin around April 07 and was associated with mild stuffiness an annoying cough she did not describe productive cough no significant fevers. She is managed symptoms well at home. She thought that she was getting better when she woke up this morning and went over to see her friends 11-day-old baby. After that visit she began coughing more and was concerned that she might have RSV and wanted to be responsible and make sure that she had exposed the 11-day-old child RSV. She co mes in for respiratory testing. Related Data Home Medications Medication Instructions Recorded Confirmed etonogestrel 68 mg subdermal subdermal 03/31/18 10/27/22 implant (Nexplanon) Allergies Allergy/AdvReac Type Severity Reaction Status Date / Time No Known Drug Allergies Allergy Verified 10/27/22 08:53 Review of Systems Review of Systems Narrative: Pertinent positive and negative findings as per HPI Patient History Medical History (Updated 04/20/23 @ 01:02 by Rita Llanes MD) Anxiety Depression Hemochromatosis Surgical History No history of previous surgery (03/31/18) Family History Father No problems noted. Mother No problems noted. Brother No problems noted. Social History Smoking Status: Never smoker alcohol intake: never substance use type: does not use Smoking Status: Never smoker Substance Use Type: does not use Exam Initial Vital Signs Initial Vital Signs: Vital Signs Temperature 98.3 F 04/19/23 23:40 Pulse Rate 96 H 04/19/23 23:40 Respiratory Rate 18 04/19/23 23:40 Blood Pressure 141/81 H 04/19/23 23:40 Pulse Oximetry 99 04/19/23 23:40 Oxygen Delivery Method Room Air 04/19/23 23:40 General: Healthy appearing, in no acute distress. Able to give a complete and coherent history. Well-nourished well-developed HEENT: Moist mucous membranes, normal sclera with reactive pupils, no pharyngeal erythema Neck: No cervical adenopathy, supple Respiratory: Lungs are clear to auscultation, no wheezing no rales no rhonchi. Full and symmetrical air movement Cardiac: Regular rate and rhythm no murmurs no bruits Abdomen: Soft, nontender, no flank pain Skin: Warm and dry, no rashes Neurologic: Grossly neurologically intact with no obvious asymmetries or abnormalities Extremities: No trauma, well perfused Psych: Cooperative, appropriate insight and affect Course Orders Ordered: ED Orders 04/19/23 23:53 Covid-19 + FLU A/B + RSV - PCR Stat Vital Signs Vital signs: Vital Signs - 8 hr 04/19/23 23:40 Temperature 98.3 F Pulse Rate 96 H Respiratory Rate 18 Blood Pressure 141/81 H Pulse Oximetry 99 Oxygen Delivery Method Room Air Medical Decision Making Lab Data Labs: Lab Results 04/19/23 Range/Units 23:53 SARS-CoV-2 (PCR) Negative (Negative) Influenza A (RT-PCR) Flu a negative (NEGATIVE) Influenza B (RT-PCR) Flu b negative (NEGATIVE) RSV (PCR) Negative (Negative) MDM Narrative Medical decision making narrative: CC: Cough Data collected from: patient, Differential considered: Viral syndrome cause, reactive airway disease, bacterial pneumonia Exam documented above, pertinent findings include: Completely benign exam Lab Test results independently reviewed as above. Pertinent findings: No evidence for RSV, influenza or COVID Discussion: 28-year-old woman on day 14 of upper respiratory symptoms felt that she was getting better and did visit her friends 11-day-old son. Began having a slight cough again this evening. Overall she feels that she is clearly improved from the viral symptoms that she 1st noticed almost 2 weeks ago. Reassurance was given regarding the absence of RSV, COVID, influenza. Questions are answered and she is safe for discharge [facility] Apprpriate Treatment for Patients with URI [x] The patient was diagnosed with upper respiratory infection and was not prescribed or dispensed an antibiotic. [SATISFIES [facility] PERFORMANCE] Discharge Plan Departure Patient Disposition: Home Clinical Impression: URI (upper respiratory infection) Qualifiers: URI type: unspecified viral URI Qualified Code(s): J06.9 - Acute upper respiratory infection, unspecified Instructions: DI for Viral Syndrome Activity Restrictions/Additional Instructions: Thank you for coming in today So you do not have RSV, influenza or COVID. It does sound like you are getting over one of the other viruses that we have been seeing working its way through the community. Using 400 mg of ibuprofen (2 [id number] pills) and 1 Tylenol every 6 hours can be very helpful in controlling pain. I would recommend staying away from your friends until your cough has completely resolved. If you find that you are getting worse or develop any new symptoms, please feel free to return to the emergency department for further evaluation. Prescriptions: No Action etonogestrel [Nexplanon] 68 mg implant Subdermal Referrals: Rama Rolon DO [Primary Care Provider] - Stand Alone Forms: Patient Portal/API
== END 2023-04-20 01:07 | disposition home or self-care (01) ==
PROVIDERS: Emergency Provider Emergency Medicine; PCP Family Medicine
DX: J06.9 Acute upper respiratory infection, unspecified (principal); Z20.822 Contact with and (suspected) exposure to COVID-19
CPT/HCPCS: 0241U; 99281; 99282

== ENCOUNTER → 2023-05-19 09:14 | Outpatient (CLI) | payer OTHER, MEDICAID, SELFPAY | PROVIDERS: PCP Family Medicine; Visit Provider Nurse Practitioner Family | DX: R30.0 Dysuria (principal) | CPT/HCPCS: 81002; 87086; 87210 ==

== ENCOUNTER → 2023-05-20 09:46 | Outpatient (CLI) | payer OTHER, MEDICAID, SELFPAY ==
[2023-05-20 18:14] LABS: Urine N gonorrhoeae NOT DETECTED
[2023-05-20 18:41] LABS: Urine Chlamydia NOT DETECTED
== END ==
PROVIDERS: PCP Family Medicine; Visit Provider Nurse Practitioner Family
DX: R30.0 Dysuria (principal)
CPT/HCPCS: 87491; 87591

== ENCOUNTER → 2023-06-30 11:15 | Outpatient (CLI) | payer OTHER, MEDICAID, SELFPAY ==
[2023-06-30 12:56] LABS: Add Manual Diff / Slide Review NO; Basophils Absolute Auto 0 /uL (0-100); Basophils Percent Auto 0.5 % (0-2); Eosinophils Absolute Auto 0 /uL (0-450); Eosinophils Percent Auto 0.3 % (2-4); Hematocrit 39.6 % (36-46); Hemoglobin 13.2 g/dL (12.0-16.0); Lymphocytes Absolute Auto 1000 /uL (1100-4500); Lymphocytes Percent Auto 14.9 % (25-40); Mean Corpuscular HGB Conc 33.3 % (30-36); Mean Corpuscular Hemoglobin 29.7 PG (26-34); Mean Corpuscular Volume 89.3 fL (80-100); Monocytes Absolute Auto 500 /uL (0-900); Monocytes Percent Auto 7.2 % (3-14); Neutrophils Absolute Auto 5300 /uL (1500-7000); Neutrophils Percent Auto 77.1 % (50-75); Platelet Count 219 X10^3/uL (150-400); Red Blood Cell Count 4.43 X10^6/uL (4.0-5.2); Red Cell Distribution Width 12.6 % (11.6-14.8); White Blood Cell Count 6.8 X10^3/uL (4.5-11.0)
[2023-07-01 17:43] LABS: HIV 1 & 2 Ab/Ag 4th Gen Combo NEGATIVE (NEGATIVE); Hep C Virus Ab w/Reflex Quant NEGATIVE s/c (NEGATIVE)
== END ==
PROVIDERS: PCP Family Medicine; Referring Provider Family Medicine; Visit Provider Family Medicine
DX: Z11.59 Encounter for screening for other viral diseases (principal); Z11.4 Encounter for screening for human immunodeficiency virus [HIV]; K64.9 Unspecified hemorrhoids; K92.1 Melena
CPT/HCPCS: 36415; 85025; 86803; 87389

== ENCOUNTER → 2023-11-02 09:29 | Outpatient (CLI) | payer OTHER, MEDICAID, SELFPAY | PROVIDERS: PCP Family Medicine; Visit Provider Physician Assistant Surgical | DX: J02.9 Acute pharyngitis, unspecified (principal) | CPT/HCPCS: 87070 ==

== ENCOUNTER 2024-12-06 05:48 | Emergency (ER) | payer SELFPAY ==
[2024-12-06] VITALS (7 sets, daily range): BP systolic 100–122; BP diastolic 66–89; PULSE 61–85; RESP 12–16; TEMP 36.6; O2SAT 98–100; BMI 24.2
--- NOTE | 2024-12-06 05:51 | ED.GENADULT ---
HPI - General Adult <Al Aguilar MD - Last Filed: 12/06/24 15:09> General Chief complaint: Abdominal Pain Stated complaint: left side abd pain Time Seen by Provider: 12/06/24 05:50 History of Present Illness HPI narrative: 29-year-old female with history of prior urinary infections, none recent, no recent antibiotic exposure, complains of 2 days duration left flank pain intermittent, somewhat sharp, without fevers or chills, without painful or frequent urination. She has had previous kidney infections before. No known kidney stones. No prior ovarian cysts. No pelvic infections recalled. No recent vaginal bleeding. No known colitis or diverticulitis. No loose stools or black stools. Denies nausea or vomiting. Denies chest pain shortness of breath cough. Related Data Home Medications ?Medication ?Instructions ?Recorded ?Confirmed etonogestrel 68 mg subdermal 1 implant subdermal .q3year 03/31/18 12/06/24 implant (Nexplanon) Previous Rx's ?Medication ?Instructions ?Recorded cefdinir 300 mg capsule 300 mg PO BID 10 days #20 caps 12/06/24 Allergies Allergy/AdvReac Type Severity Reaction Status Date / Time No Known Drug Allergies Allergy Verified 12/06/24 05:53 Patient History <Al Aguilar MD - Last Filed: 12/06/24 15:09> Medical History (Updated 12/06/24 @ 09:31 by Nicci Roman DO) Anxiety Depression Hemochromatosis Surgical History No history of previous surgery (03/31/18) Family History Father No problems noted. Mother No problems noted. Brother No problems noted. Social History Smoking Status: Never smoker alcohol intake: never substance use type: does not use Exam <Al Aguilar MD - Last Filed: 12/06/24 15:09> Narrative Exam Narrative: GENERAL: Well-developed patient, in mild distress. HEAD: Atraumatic. Normocephalic. EYES: Pupils equal round and reactive. Extraocular motions intact. No scleral icterus. No injection or drainage. ENT: Nose without bleeding, purulent drainage. Throat without erythema, tonsillar hypertrophy or exudate. Airway patent. NECK: Trachea midline. Non tender CARDIOVASCULAR: Regular rate and rhythm without murmurs, gallops, or rubs. RESPIRATORY: Clear to auscultation. Breath sounds equal bilaterally. No wheezes, rales, or rhonchi. GASTROINTESTINAL: Abdomen soft, non-tender, nondistended. EXTREMITIES: No edema or joint tenderness. BACK: Nontender without deformity or crepitance. No flank tenderness. NEURO: AOx3. Motor functions grossly nonfocal. SKIN: No rash or erythema of visible areas Initial Vital Signs Initial Vital Signs: Vital Signs Temperature 97.9 F 12/06/24 05:55 Pulse Rate 85 12/06/24 05:55 Respiratory Rate 16 12/06/24 05:55 Blood Pressure 122/89 12/06/24 05:55 Pulse Oximetry 98 12/06/24 05:55 Oxygen Delivery Method Room Air 12/06/24 05:55 <Nicci Roman DO - Last Filed: 12/06/24 14:12> Initial Vital Signs Initial Vital Signs: Vital Signs Temperature 97.9 F 12/06/24 05:55 Pulse Rate 85 12/06/24 05:55 Respiratory Rate 16 12/06/24 05:55 Blood Pressure 122/89 12/06/24 05:55 Pulse Oximetry 98 12/06/24 05:55 Oxygen Delivery Method Room Air 12/06/24 05:55 Course <Al Aguilar MD - Last Filed: 12/06/24 15:09> Orders Ordered: ED Orders 12/06/24 06:14 US pelvic complete Stat Discontinued Medications Ceftriaxone Sodium 1,000 mg/ (Sodium Chloride) 100 mls @ 200 mls/hr IV NOW ONE Stop: 12/06/24 06:43 Last Infusion: 12/06/24 07:35 Dose: Infused Documented By: Admin: 12/06/24 06:58 Dose: 200 mls/hr Documented By: CHRIS Ondansetron HCl (Ondansetron 4 Mg/2 Ml Inj) 4 mg IV NOW PRN PRN Reason: Nausea And Vomiting Ondansetron HCl (Ondansetron 4 Mg Odt) 4 mg PO NOW PRN PRN Reason: Nausea And Vomiting Vital Signs Vital signs: Vital Signs - 8 hr 12/06/24 07:35 12/06/24 08:21 12/06/24 08:30 Pulse Rate 64 61 62 Respiratory Rate 12 Blood Pressure 106/68 Pulse Oximetry 99 99 99 Oxygen Delivery Method Room Air 12/06/24 09:00 12/06/24 09:22 12/06/24 09:22 Pulse Rate 64 Respiratory Rate Blood Pressure 100/66 Pulse Oximetry 100 100 Oxygen Delivery Method 12/06/24 09:34 Pulse Rate 72 Respiratory Rate 12 Blood Pressure 100/66 Pulse Oximetry 99 Oxygen Delivery Method Room Air <Nicci Roman DO - Last Filed: 12/06/24 14:12> Orders Ordered: ED Orders 12/06/24 06:14 US pelvic complete Stat Discontinued Medications Ceftriaxone Sodium 1,000 mg/ (Sodium Chloride) 100 mls @ 200 mls/hr IV NOW ONE Stop: 12/06/24 06:43 Last Infusion: 12/06/24 07:35 Dose: Infused Documented By: Admin: 12/06/24 06:58 Dose: 200 mls/hr Documented By: CHRIS Ondansetron HCl (Ondansetron 4 Mg/2 Ml Inj) 4 mg IV NOW PRN PRN Reason: Nausea And Vomiting Ondansetron HCl (Ondansetron 4 Mg Odt) 4 mg PO NOW PRN PRN Reason: Nausea And Vomiting Vital Signs Vital signs: Vital Signs - 8 hr 12/06/24 07:35 12/06/24 08:21 12/06/24 08:30 Pulse Rate 64 61 62 Respiratory Rate 12 Blood Pressure 106/68 Pulse Oximetry 99 99 99 Oxygen Delivery Method Room Air 12/06/24 09:00 12/06/24 09:22 12/06/24 09:22 Pulse Rate 64 Respiratory Rate Blood Pressure 100/66 Pulse Oximetry 100 100 Oxygen Delivery Method 12/06/24 09:34 Pulse Rate 72 Respiratory Rate 12 Blood Pressure 100/66 Pulse Oximetry 99 Oxygen Delivery Method Room Air Medical Decision Making <Al Aguilar MD - Last Filed: 12/06/24 15:09> Lab Data 12/06/24 06:05 12/06/24 06:05 Labs: Lab Results 12/06/24 12/06/24 Range/Units 05:57 06:05 WBC 5.0 (4.5-11.0) X10^3/uL RBC 4.24 (4.0-5.2) X10^6/uL Hgb 12.9 (12.0-16.0) g/dL Hct 38.0 (36-46) % MCV 89.6 (80-100) fL MCH 30.4 (26-34) PG MCHC 33.9 (30-36) % RDW 13.1 (11.6-14.8) % Plt Count 179 (150-400) X10^3/uL Neut % (Auto) 60.2 (50-75) % Lymph % (Auto) 26.5 (25-40) % [place] % (Auto) 10.9 (3-14) % Eos % (Auto) 1.8 L (2-4) % Baso % (Auto) 0.6 (0-2) % Neut # (Auto) 3000 (2866-5118) /uL Lymph # (Auto) 1300 (3821-4293) /uL [place] # (Auto) 500 (0-900) /uL Eos # (Auto) 100 (0-450) /uL Baso # (Auto) 0 (0-100) /uL Sodium 136 L (137-145) mmol/L Potassium 3.7 (3.4-5.1) mmol/L Chloride 106 (98-107) mmol/L Carbon Dioxide 23 (22-32) mmol/L BUN 12 (7-17) mg/dL Creatinine 0.72 (0.52-1.04) mg/dL Estimated GFR > 60 (>60) mL/min BUN/Creatinine Ratio 16.7 (6-22) Glucose 94 (70-99) mg/dL Calcium 9.1 (8.4-10.2) mg/dL Total Bilirubin 0.5 (0.2-1.3) mg/dL AST 23 (14-36) IU/L ALT 14 (<35) IU/L Alkaline Phosphatase 56 (38-126) U/L Total Protein 6.8 (6.3-8.2) g/dL Albumin 4.1 (3.5-5.0) g/dL Globulin 2.7 (1.7-4.1) g/dL Albumin/Globulin Ratio 1.5 (1.0-2.8) Lipase 111 (23-300) U/L Urine RBC 30-100/hpf H (0-5/HPF) Urine WBC 1-5/hpf (0-5/HPF) Ur Squamous Epith Cells 1-5 /hpf (0-5/HPF) Urine Bacteria Few (2-10) H (None) Ur Culture Indicated? Specimen cultured Vol Urine Centrifuged 10ml (spun) Ur Chlamydia DNA (PCR) Not detected N gonorrhoeae DNA (PCR) Not detected Point of Care Testing Test Results Negative Urine Dip Bedside Urine Glucose Negative Bedside Urine Bilirubin + 1 Bedside Urine Ketone - Negative Urine Specific [place] 1.030 Bedside Urine Occult Blood +++ Bedside Urine pH 6.0 Bedside Urine Protein +/- 15 Bedside Urine Urobilinogen - Negative Bedside Urine Nitrite - Negative Bedside Urine Leukocytes - Negative Esterase Point of care testing: Point of Care Testing Test Results Negative Urine Dip Bedside Urine Glucose Negative Bedside Urine Bilirubin + 1 Bedside Urine Ketone - Negative Urine Specific [place] 1.030 Bedside Urine Occult Blood +++ Bedside Urine pH 6.0 Bedside Urine Protein +/- 15 Bedside Urine Urobilinogen - Negative Bedside Urine Nitrite - Negative Bedside Urine Leukocytes - Negative Esterase MDM Narrative Medical decision making narrative: 29-year-old female with left flank pain, history of kidney infections in the past, no dysuria or frequency, no kidney stones known, nor any prior pelvic infections or colitis/diverticulitis. Afebrile, sirs screen negative. No significant tenderness anterior abdominal exam upper or lower. Nondistended. Urinalysis pending, urine GC chlamydia, urine hCG pending. Serum studies requested. Ultrasound pelvis initial imaging. Declines pain medications when offered. CCUA with pyuria and some bacteria, urine culture triggered. IV ceftriaxone. 0700, Pelvic US results pending. Signed out to Dr Roman. 12/06/[address] Roman: Patient signed out to myself by Dr. Aguilar. No waiting pelvic culture and urine GC. Labs show normal CBC, chemistry are appropriate, urine suspicious for potential infection 3200 RBCs 1-5 WBCs 1-5 squamous few bacteria. Negative for nitrates and leuks. Point of care is negative. Pelvic ultrasound was performed. Endometrium 2mm, R ovarian anechoic cyst, measuring 3.5cm, no ovarian torsion. Trave pelvic cul-de-suc. Patient's urine GC was delayed, spoke with patient she would prefer to go home at this time she was received a dose of Rocephin. We discussed if urine GC is positive we will call her and send the rest of antibiotics we will send a prescription for potential pyelonephritis. Reviewed all of her findings she feels comfortable with this she was asymptomatic without any pain at this time notes she was only having left flank pain. She states she was had UTIs in the past she was suspicious this might be her source of symptoms. She was not having any right-sided pain on exam she was asymptomatic with a benign abdominal exam. She notes that she was in a monogamous relationship for the last decade and feels that she was likely low risk. Patient received Rocephin. Urine GC was negative. <Nicci Morillo Abel, DO - Last Filed: 12/06/24 14:12> Lab Data Labs: Lab Results 12/06/24 12/06/24 Range/Units 05:57 06:05 WBC 5.0 (4.5-11.0) X10^3/uL RBC 4.24 (4.0-5.2) X10^6/uL Hgb 12.9 (12.0-16.0) g/dL Hct 38.0 (36-46) % MCV 89.6 (80-100) fL MCH 30.4 (26-34) PG MCHC 33.9 (30-36) % RDW 13.1 (11.6-14.8) % Plt Count 179 (150-400) X10^3/uL Neut % (Auto) 60.2 (50-75) % Lymph % (Auto) 26.5 (25-40) % [place] % (Auto) 10.9 (3-14) % Eos % (Auto) 1.8 L (2-4) % Baso % (Auto) 0.6 (0-2) % Neut # (Auto) 3000 (6096-3216) /uL Lymph # (Auto) 1300 (8259-7361) /uL [place] # (Auto) 500 (0-900) /uL Eos # (Auto) 100 (0-450) /uL Baso # (Auto) 0 (0-100) /uL Sodium 136 L (137-145) mmol/L Potassium 3.7 (3.4-5.1) mmol/L Chloride 106 (98-107) mmol/L Carbon Dioxide 23 (22-32) mmol/L BUN 12 (7-17) mg/dL Creatinine 0.72 (0.52-1.04) mg/dL Estimated GFR > 60 (>60) mL/min BUN/Creatinine Ratio 16.7 (6-22) Glucose 94 (70-99) mg/dL Calcium 9.1 (8.4-10.2) mg/dL Total Bilirubin 0.5 (0.2-1.3) mg/dL AST 23 (14-36) IU/L ALT 14 (<35) IU/L Alkaline Phosphatase 56 (38-126) U/L Total Protein 6.8 (6.3-8.2) g/dL Albumin 4.1 (3.5-5.0) g/dL Globulin 2.7 (1.7-4.1) g/dL Albumin/Globulin Ratio 1.5 (1.0-2.8) Lipase 111 (23-300) U/L Urine RBC 30-100/hpf H (0-5/HPF) Urine WBC 1-5/hpf (0-5/HPF) Ur Squamous Epith Cells 1-5 /hpf (0-5/HPF) Urine Bacteria Few (2-10) H (None) Ur Culture Indicated? Specimen cultured Vol Urine Centrifuged 10ml (spun) Ur Chlamydia DNA (PCR) Not detected N gonorrhoeae DNA (PCR) Not detected Point of Care Testing Test Results Negative Urine Dip Bedside Urine Glucose Negative Bedside Urine Bilirubin + 1 Bedside Urine Ketone - Negative Urine Specific [place] 1.030 Bedside Urine Occult Blood +++ Bedside Urine pH 6.0 Bedside Urine Protein +/- 15 Bedside Urine Urobilinogen - Negative Bedside Urine Nitrite - Negative Bedside Urine Leukocytes - Negative Esterase Point of care testing: Point of Care Testing Test Results Negative Urine Dip Bedside Urine Glucose Negative Bedside Urine Bilirubin + 1 Bedside Urine Ketone - Negative Urine Specific [place] 1.030 Bedside Urine Occult Blood +++ Bedside Urine pH 6.0 Bedside Urine Protein +/- 15 Bedside Urine Urobilinogen - Negative Bedside Urine Nitrite - Negative Bedside Urine Leukocytes - Negative Esterase [facility] Narrative Medical decision making narrative: 29-year-old female with left flank pain, history of kidney infections in the past, no dysuria or frequency, no kidney stones known, nor any prior pelvic infections or colitis/diverticulitis. Afebrile, sirs screen negative. No significant tenderness anterior abdominal exam upper or lower. Nondistended. Urinalysis pending, urine GC chlamydia, urine hCG pending. Serum studies requested. Ultrasound pelvis initial imaging. Declines pain medications when offered. CCUA with pyuria and some bacteria, urine culture triggered. IV ceftriaxone. 12/06/[address] Roman: Patient signed out to myself by Dr. Aguilar. No waiting pelvic culture and urine GC. Labs show normal CBC, chemistry are appropriate, urine suspicious for potential infection 3200 RBCs 1-5 WBCs 1-5 squamous few bacteria. Negative for nitrates and leuks. Point of care is negative. Pelvic ultrasound was performed. Endometrium 2mm, R ovarian anechoic cyst, measuring 3.5cm, no ovarian torsion. Trave pelvic cul-de-suc. Patient's urine GC was delayed, spoke with patient she would prefer to go home at this time she was received a dose of Rocephin. We discussed if urine GC is positive we will call her and send the rest of antibiotics we will send a prescription for potential pyelonephritis. Reviewed all of her findings she feels comfortable with this she was asymptomatic without any pain at this time notes she was only having left flank pain. She states she was had UTIs in the past she was suspicious this might be her source of symptoms. She was not having any right-sided pain on exam she was asymptomatic with a benign abdominal exam. She notes that she was in a monogamous relationship for the last decade and feels that she was likely low risk. Patient received Rocephin. Urine GC was negative. Discharge Plan Departure Patient Disposition: Home Clinical Impression: Pyelonephritis, Cyst of right ovary Instructions: DI for Kidney Infection Activity Restrictions/Additional Instructions: Follow up for rechecked. Your urine culture is currently pending if it shows resistance we would contact you to change your antibiotics but appears he would likely have an infection in your kidney. Your imaging did show a small right ovarian cyst. Your kidneys were not imaged we have not completely ruled out a kidney stone so if you have persistent or worsening pain please return for evaluation. You do have a test pending for gonorrhea/chlamydia. If positive we should reach out to and sent an additional antibiotic you can also call after noon today to follow up results. Take oral antibiotics until completed. Prescription sent to [facility] in [place]. Please return for fevers, new or worsening abdominal back or flank pain, persistent vomiting, difficulty or inability urinate, black or bloody stools or other new or concerning changes. Prescriptions: New cefdinir 300 mg capsule 300 mg PO BID 10 Days Qty: 20 0RF No Action Nexplanon 68 mg implant 1 implant Subdermal .q3year Referrals: Rama Rolon DO [Primary Care Provider, Family Practice] Stand Alone Forms: Patient Portal/API
[2024-12-06 06:14] LABS: Add Manual Diff / Slide Review NO; Hematocrit 38.0 % (36-46); Hemoglobin 12.9 g/dL (12.0-16.0); Lymphocytes Absolute Auto 1300 /uL (1100-4500); Mean Corpuscular HGB Conc 33.9 % (30-36); Mean Corpuscular Hemoglobin 30.4 PG (26-34); Mean Corpuscular Volume 89.6 fL (80-100); Platelet Count 179 X10^3/uL (150-400)
--- NOTE | 2024-12-06 06:14 | DI.US.S_ITS ---
PROCEDURE: US PELVIC COMPLETE INDICATIONS: L flank pain TECHNIQUE: Real-time scanning was performed of the pelvic organs, with image documentation. Additional endovaginal scanning was necessary due to incomplete visualization of the adnexal and endometrial structures by transabdominal scanning. COMPARISON: None. FINDINGS: Uterus: Uterus is retroflexed and normal in size at 8 x 5 x 3.6 cm. The myometrium is homogeneous. The endometrium measures 2 mm combined thickness. No fibroids seen. Ovaries: The right ovary measures 4.3 x 3.8 x 3.3 cm, with a calculated ovarian volume of 28 cc. The left ovary measures 2.1 x 2.1 x 1.2 cm, with a calculated ovarian volume of 3 cc. Blood flow seen in both ovaries. Less than 12 follicles can be seen in each ovary. Right ovarian anechoic cyst measuring 3.5 x 3.2 x 2.9 cm. Other: Trace fluid in the pelvic cul-de-sac. IMPRESSION: 1. Endometrium measures 2 mm. 2. Right ovarian anechoic cyst measuring 3.5 cm. 3. No ovarian torsion demonstrated. Consider further evaluation with CT abdomen and pelvis. We strive to produce accurate, complete, and clear reports of imaging services. To assist us in improving patient care, this report was composed using standard report templates and voice recognition software. Therefore, it may contain abnormal punctuation, insertions and/or omissions. Occasional wrong-word or sound-alike substitutions may occur. Though we review the report and make efforts to correct it, we do recommend that the report be read carefully in proper context to recognize any text inaccuracies. Dictated by: Javier Forbes M.D. on 12/06/2024 at 8:00 Approved by: Javier Forbes M.D. on 12/06/2024 at 8:05
[2024-12-06 06:35] LABS: Alanine Aminotransferase 14 IU/L (<35); Albumin 4.1 g/dL (3.5-5.0); Albumin Globulin Ratio 1.5 (1.0-2.8); Alkaline Phosphatase 56 U/L (38-126); Blood Urea Nitrogen 12 mg/dL (7-17); Calcium 9.1 mg/dL (8.4-10.2); Carbon Dioxide 23 mmol/L (22-32); Chloride 106 mmol/L (98-107); Estimated Glomerular Filt Rate > 60 mL/min (>60); Globulin 2.7 g/dL (1.7-4.1); Glucose 94 mg/dL (70-99); HEMOLYSIS < 15 (0-50); Lipase 111 U/L (23-300); Potassium 3.7 mmol/L (3.4-5.1); Sodium 136 mmol/L (137-145); Total Protein 6.8 g/dL (6.3-8.2)
[2024-12-06 06:35] LABS: Culture Indicated Urine Specimen Cultured
--- NOTE | 2024-12-06 06:47 | PC.NURSE ---
[employer] provided for pelvic US; pt tolerated well.
[2024-12-06 10:25] LABS: Urine Chlamydia NOT DETECTED; Urine N gonorrhoeae NOT DETECTED
== END 2024-12-06 09:43 | disposition home or self-care (01) ==
PROVIDERS: Emergency Medicine; Emergency Provider Emergency Medicine; PCP Family Medicine
DX: N12 Tubulo-interstitial nephritis, not specified as acute or chronic (principal); N83.201 Unspecified ovarian cyst, right side
CPT/HCPCS: 36415; 76830; 76856; 80053; 81003; 81015; 81025; 83690; 85025; 87086; 87491; 87591; 93976; 96365; 99284; J0696

== ENCOUNTER → 2025-05-19 13:24 | Outpatient (CLI) | payer SELFPAY | PROVIDERS: PCP Family Medicine; Visit Provider Registered Nurse | DX: J02.9 Acute pharyngitis, unspecified (principal) | CPT/HCPCS: 87070 ==